=== PATIENT | male | born 1945 | race Caucasian/White ===

== ENCOUNTER 2024-02-06 17:06 | Outpatient (CLI) | payer MEDICARE, SELFPAY | END 2024-02-06 17:07 | disposition home or self-care (01) | LOC: AMB 02-09 23:59 | PROVIDERS: Visit Provider Emergency Medicine Emergency Medical Services | DX: R41.82 Altered mental status, unspecified (principal); R53.1 Weakness | CPT/HCPCS: A0425; A0427 ==